=== PATIENT | female | born 1955 | race Caucasian/White ===

== ENCOUNTER 2018-01-05 06:54 | Day surgery (SDC) | payer OTHER, BC, SELFPAY ==
--- NOTE | 2017-12-31 17:01 | PM.PREOP ---
Pre-operative Note Interval Note Pre-op Check: History & Physical Reviewed by Physician
[2018-01-05 07:20] VITALS: BP 126/75; PULSE 88; RESP 15; TEMP 36.4; O2SAT 97; BMI 28.2
[2018-01-05] MEDS: PROPARACAINE 0.5% OPHTH SOL 2 DROPS EYE-OP (07:20)
[2018-01-05] MEDS: CATARACT EYE COMPOUND (10 DROPS/SYRINGE) 3 DROPS EYE-OP (07:49)
--- NOTE | 2018-01-05 07:51 | PM.PROC.1 ---
Procedures Date/Time Date of procedure: 01/05/18 Time of procedure: 07:52 General Procedure description: Date of service: December Preoperative diagnoses: 1. Left nuclear sclerotic and cortical cataract with astigmatism 2. Hypertension 3. Arthritis Postoperative diagnoses: 1. Cataract status post toric intra-ocular lens implant with phacoemulsification Procedure: Phacoemulsification with posterior chamber intraocular lens implant Surgeon: Denise Upton MD Complications: None Specimen: None Implant: [id number] +21.0 Blood loss: None Anesthesia: Retrobulbar with monitored standby Anesthesiologist: Christelle Marc M.D. Description of procedure: Patient is a 62 year old female] with decreased vision due to cataract which is affecting activities of daily living. She wants surgery to improve vision with an astigmatism correcting intraocular lens implant with a distance target. She has taken to the operating room and given topical proparacaine drops.Then corneal marking were performed with an inked marker at 90 and 180 degrees.she was then given IV sedation. A retrobulbar block insert consisting of 6 cc of 2% xylocaine without epinephrine mixed half and half with 0.5% Marcaine with 1 cc of hyaluronidase added is placed between the medial and lateral 1/3 of the inferior orbital rim. Lid akinesia is obtain with 1% xylocaine with epinephrine infiltrated along the lid margin. The eye is manually massaged for 30 sec, prepped using Betadine solution, and draped in the usual sterile fashion. Temporal approach was made, a 1 mm side-port incision was made at the 180 meridian. Phenylephrine 1.5% mixed with 1% xylocaine 0.2 cc was placed into the anterior chamber. Viscoat followed by Reina was then placed. A 2.6 mm clear incision with a 2.6 mm blade was placed at the 3 oclock meridian. A 360 degree capsulorrhexis style capsulotomy was then performed with a cystitome needle on a Healon. Hydrodelineation and hydrodissection were performed. The phacoemulsification unit is introduced, and sculpting notice used to groove the central lens. It is then removed in chopping mode. Epi nucleus is removed with epinuclear mode and irrigation aspiration was used to remove the peripheral cortex. The posterior capsule is polished. The intraocular lens is selected, inspected, power confirmed, and placed at the 136 degree meridian in the posterior chamber. The pupil was not constricted. The wound was stromally hydrated and tested for leaks, there was none and was left sutureless. Vigamox 0.1 cc was placed into the anterior chamber. Kenalog 0.2 cc was placed in the superior subconjunctival space. A drop of antibiotic and was placed and the eye was patched and shielded. The patient was stable and returned to the recovery room in excellent condition. Dictated by: Denise Upton MD Copy to: [facility]
[2018-01-05] MEDS: PROPARACAINE 0.5% OPHTH SOL 2 DROPS EYE-LEFT (08:00)
[2018-01-05] MEDS: LIDOCAINE 2% 4 ML, BUPIVACAINE 0.5% (PF) 4 ML, HYALURONIDASE 150 UNIT INJ (08:05)
[2018-01-05] MEDS: LIDOCAINE 1% W/EPI INJ 20 ML INJ (08:05)
[2018-01-05] MEDS: BALANCED SALT IRRIG SOLN NO.2 15 ML IRRIG.SOLN IRR (08:26)
[2018-01-05] MEDS: HYALURONATE SODIUM 10 MG/ML SYRINGE INJ (08:27)
[2018-01-05] MEDS: CHONDROIDTIN/SOD HYALURONATE 1.05 ML SYRINGE INTRAOCULA (08:27)
[2018-01-05] MEDS: MOXIFLOXACIN OPHTH DROPS 3 ML BOTTLE 2 DROPS INJ (08:28)
[2018-01-05] MEDS: NEOMYCIN/POLY/DEX OPHTH OINT 1 APPLIC EYE-LEFT (08:30)
[2018-01-05] MEDS: OFLOXACIN 0.3% OPHTH 5 ML 2 DROPS EYE-LEFT (08:30)
[2018-01-05] MEDS: PHENYLEPHRINE/LIDOCAINE 3ML VIAL (OR) EYE-OP (08:31)
[2018-01-05] MEDS: TRIAMCINOLONE 50 MG/5 ML VIAL INJ (08:33)
[2018-01-05] MEDS: BALANCED SALT IRRIG SOLN NO.2 500 ML, EPINEPHrine 1 MG IRR (08:34)
--- NOTE | 2018-01-05 20:14 | PM.DS.1 ---
History of Present Illness Chief complaint: [id number] Discharge Providers Primary care physician: Carmina Bowers PA-C Discharge provider: Denise Upton MD Exam Vital Signs (past 8 hours): Oxygen Delivery Method Room Air Discharge Plan Discharge Plan Patient Disposition: Home, Self-Care Discharge Med Rec/Prescriptions Prescriptions: No Action gabapentin 100 MG capsule 200 mg PO DAILY Qty: 0 RF: 0 atomoxetine [Strattera] 100 MG capsule 100 mg PO Qty: 0 RF: 0 gabapentin [Neurontin] 300 MG capsule 600 mg PO HS Qty: 0 RF: 0 bupropion HCl 150 mg PO BID RF: 0 cetirizine 20 mg PO DAILY PRN (Reason: Allergy Symptoms) RF: 0 progesterone micronized [Prometrium] 200 MG capsule 200 mg PO BEDTIME RF: 0 Discharge Orders: Discharge (Order); Ordered 01/05/18 Ordered By: Denise Upton Provider Discharge Instructions Activity: See handout. Visit Report/Discharge Packet Stand Alone Forms: Cataract Discharge Won, Surgery Discharge Discharge Data Primary Care Provider: Carmina Bowers Attending Provider: Denise Upton Discharges patient from system. Discharge Date/Time: 01/05/18 09:08
== END 2018-01-05 09:08 | disposition home or self-care (01) ==
PROVIDERS: PCP Physician Assistant; Visit Provider Ophthalmology
DX: H25.12 Age-related nuclear cataract, left eye (principal); F41.9 Anxiety disorder, unspecified; I10 Essential (primary) hypertension
CPT/HCPCS: J0171; J2250; J2704; J3010; J3301; J3470; V2787

== ENCOUNTER → 2018-01-18 14:22 | Outpatient (CLI) | payer OTHER, BC, SELFPAY | PROVIDERS: PCP Physician Assistant; Visit Provider Physician Assistant | DX: M85.88 Other specified disorders of bone density and structure, other site (principal); F17.200 Nicotine dependence, unspecified, uncomplicated | CPT/HCPCS: 77080 ==

== ENCOUNTER 2018-01-19 07:18 | Day surgery (SDC) | payer OTHER, BC, SELFPAY ==
[2018-01-19] MEDS: PROPARACAINE 0.5% OPHTH SOL 2 DROPS EYE-OP (07:25)
[2018-01-19 07:30] VITALS: BP 130/75; PULSE 82; RESP 16; TEMP 36.7; O2SAT 98; BMI 28.2
[2018-01-19] MEDS: CATARACT EYE COMPOUND (10 DROPS/SYRINGE) 3 DROPS EYE-OP (07:30)
--- NOTE | 2018-01-19 07:35 | PM.PREOP ---
Pre-operative Note Interval Note Pre-op Check: Yes History & Physical Reviewed by Physician Changes: No
--- NOTE | 2018-01-19 07:37 | PM.OP.1 ---
Operative Date/Time/Diagnoses Date of procedure: 01/19/18 Time of procedure: 08:00 Procedure & Clinicians Procedure: Date of service: January 19, 2018 Preoperative diagnoses: 1. Right cortical nuclear sclerotic Cataract 2. Astigmatism which she elects to correct with a toric intraocular lens. Postoperative diagnoses: 1. Cataract status post cataract surgery with toric intraocular lens implant Procedure: Phacoemulsification with posterior chamber intraocular lens implant Surgeon: Denise Upton MD Complications: None Specimen: None Implant: [id number]+20.0 [place] 037 Blood loss: None Anesthesia: Retrobulbar with monitored standby Anesthesiologist: Rohith Kiran M.D. Description of procedure: Patient is a female year old with decreased vision due to cataract which is affecting activities of daily living. She wants surgery to improve vision. She was taken to the operating room and topical proparacaine drops placed. Indelible ink rodríguez were made at the 90 and 180 degree meridian.She was then given IV sedation. A retrobulbar block insert consisting of 6 cc of 2% xylocaine without epinephrine mixed half and half with 0.5% Marcaine with 1 cc of hyaluronidase added is placed between the medial and lateral 1/3 of the inferior orbital rim. Lid akinesia is obtain with 1% xylocaine with epinephrine infiltrated along the lid margin. The eye is manually massaged for 30 sec, prepped using Betadine solution, and draped in the usual sterile fashion. Temporal approach was made, a 1 mm side-port incision was made at the 7:30 position. Phenylephrine 1.5% mixed with 1% xylocaine 0.2 cc was placed into the anterior chamber. Viscoat followed by Reina was then placed. A 2.6 mm clear incision with a 2.6 mm blade was placed at the 170 degree meridian. A 360 degree capsulorrhexis style capsulotomy was then performed with a cystitome needle on a Healon. Hydrodelineation and hydrodissection were performed. The phacoemulsification unit is introduced, and sculpting notice used to groove the central lens. It is then removed in chopping mode. Epi nucleus is removed with epinuclear mode and irrigation aspiration was used to remove the peripheral cortex. The posterior capsule is polished. The intraocular lens is selected, inspected, power confirmed, and placed in the 37 degree meridian in the posterior chamber. The pupil was not constricted. The wound was strongly hydrated and tested for leaks, there was none [] left sutureless. Vigamox 0.1 cc was placed into the anterior chamber. Kenalog 0.2 cc was placed in the superior subconjunctival space. A drop of antibiotic and was placed and the eye was patched and shielded. The patient was stable and returned to the recovery room in excellent condition. Dictated by: Denise Upton MD Copy to: [facility]
[2018-01-19] MEDS: PROPARACAINE 0.5% OPHTH SOL 2 DROPS EYE-RIGHT (07:58)
[2018-01-19] MEDS: LIDOCAINE 2% 4 ML, BUPIVACAINE 0.5% (PF) 4 ML, HYALURONIDASE 150 UNIT INJ (08:02)
[2018-01-19] MEDS: CHONDROIDTIN/SOD HYALURONATE 1.05 ML SYRINGE INTRAOCULA (08:22)
[2018-01-19] MEDS: HYALURONATE SODIUM 10 MG/ML SYRINGE INJ (08:22)
[2018-01-19] MEDS: BALANCED SALT IRRIG SOLN NO.2 15 ML IRRIG.SOLN IRR (08:22)
[2018-01-19] MEDS: LIDOCAINE 1% W/EPI INJ 20 ML INJ (08:23)
[2018-01-19] MEDS: MOXIFLOXACIN OPHTH DROPS 3 ML BOTTLE 2 DROPS INJ (08:23)
[2018-01-19] MEDS: NEOMYCIN/POLY/DEX OPHTH OINT 1 APPLIC EYE-RIGHT (08:25)
[2018-01-19] MEDS: OFLOXACIN 0.3% OPHTH 5 ML 2 DROPS EYE-RIGHT (08:26)
[2018-01-19] MEDS: PHENYLEPHRINE/LIDOCAINE 3ML VIAL (OR) EYE-OP (08:26)
[2018-01-19] MEDS: BALANCED SALT IRRIG SOLN NO.2 500 ML, EPINEPHrine 1 MG IRR (08:28)
[2018-01-19] MEDS: TRIAMCINOLONE 50 MG/5 ML VIAL INJ (08:28)
[2018-01-19 08:47] VITALS: BP 112/80; PULSE 80; RESP 20; TEMP 36.5; O2SAT 96
--- NOTE | 2018-01-19 09:02 | SUR.PHASEII ---
Given preprinted discharge instructions provided by Dr. Upton.
== END 2018-01-19 09:02 | disposition home or self-care (01) ==
PROVIDERS: PCP Physician Assistant; Visit Provider Ophthalmology
DX: H25.11 Age-related nuclear cataract, right eye (principal); H52.201 Unspecified astigmatism, right eye; F41.9 Anxiety disorder, unspecified
CPT/HCPCS: J0171; J2704; J3301; J3470; V2787

== ENCOUNTER → 2018-03-02 15:37 | Outpatient (CLI) | payer OTHER, BC, SELFPAY ==
--- NOTE | 2018-03-02 15:40 | DI.RAD.S_ITS ---
PROCEDURE: XR CHEST 2V INDICATIONS: Cough and fatigue TECHNIQUE: 2 views of the chest were acquired. COMPARISON: [facility], , CHEST 2 VIEW, 07/29/2016, 15:49. FINDINGS: Surgical changes and devices: None. Lungs and pleura: No pleural effusions or pneumothorax. Lungs are clear. Mediastinum: Mediastinal contours are normal. Heart size is normal. Bones and chest wall: No suspicious bony abnormalities. Soft tissues appear unremarkable. IMPRESSION: Negative chest. No acute cardiopulmonary process is evident. Dictated by: Yosef Mcmahon M.D. on 03/02/2018 at 14:55 Approved by: Yosef Mcmahon M.D. on 03/02/2018 at 14:57
== END ==
PROVIDERS: PCP Physician Assistant; Visit Provider Physician Assistant
DX: R05 Cough (principal); R53.83 Other fatigue
CPT/HCPCS: 71046

== ENCOUNTER → 2018-08-04 11:09 | Outpatient (CLI) | payer BC, SELFPAY ==
[2018-08-04 11:38] LABS: Add Manual Diff / Slide Review NO; Basophils Absolute Auto 100 /uL (0-100); Basophils Percent Auto 1.3 % (0-2); Eosinophils Absolute Auto 400 /uL (0-450); Eosinophils Percent Auto 4.9 % (2-4); Hematocrit 40.3 % (36-46); Hemoglobin 13.3 g/dL (12.0-16.0); Lymphocytes Absolute Auto 2200 /uL (1100-4500); Mean Corpuscular Hemoglobin 28.1 PG (26-34); Monocytes Absolute Auto 400 /uL (0-900); Monocytes Percent Auto 6.1 % (3-14); Neutrophils Absolute Auto 4000 /uL (1500-7000); Neutrophils Percent Auto 56.7 % (50-75); Platelet Count 348 X10^3/uL (150-400); Red Blood Cell Count 4.74 X10^6/uL (4.0-5.2); Red Cell Distribution Width 13.4 % (11.6-14.8); White Blood Cell Count 7.1 X10^3/uL (4.5-11.0)
[2018-08-04 12:04] LABS: Alanine Aminotransferase 37 IU/L (9-52); Albumin 4.6 g/dL (3.5-5.0); Albumin Globulin Ratio 1.6 (1.0-2.8); Alkaline Phosphatase 78 U/L (38-126); Aspartate Aminotransferase 20 IU/L (14-36); Bilirubin Total 0.5 mg/dL (0.2-1.3); Blood Urea Nitrogen 18 mg/dL (7-17); Calcium 9.8 mg/dL (8.4-10.2); Carbon Dioxide 27 mmol/L (22-32); Chloride 102 mmol/L (98-107); Cholesterol 225 mg/dL (140-199); Estimated Glomerular Filt Rate > 60.0 mL/min (>60); Globulin 2.8 g/dL (1.7-4.1); Glucose 101 mg/dL (80-110); HDL Cholesterol 48 mg/dL (40-60); HEMOLYSIS < 15 (0-50); LDL Cholesterol Calculated 147 mg/dL (<100); Potassium 5.2 mmol/L (3.4-5.1); Sodium 139 mmol/L (137-145); Total Protein 7.4 g/dL (6.3-8.2); Triglycerides 148 mg/dL (35-150)
== END ==
PROVIDERS: PCP Physician Assistant; Visit Provider Physician Assistant
DX: E78.5 Hyperlipidemia, unspecified (principal); R10.31 Right lower quadrant pain
CPT/HCPCS: 36415; 80053; 80061; 85025; 87086

== ENCOUNTER → 2018-08-08 13:59 | Outpatient (CLI) | payer BC, SELFPAY ==
--- NOTE | 2018-08-08 | DI.CT.S_ITS ---
PROCEDURE: CT ABDOMEN PELVIS W CON INDICATIONS: LOWER RIIGHT QUADRANT PAIN TECHNIQUE: After the administration of oral and intravenous contrast, 5 mm thick sections acquired from the diaphragms to the symphysis. 5 mm thick coronal and sagittal reformats were performed. For radiation dose reduction, the following was used: automated exposure control, adjustment of mA and/or kV according to patient size. COMPARISON: [facility], CT, CHEST ABDOMEN PELVIS WITH CONTRAST, 01/16/2011, 8:24. FINDINGS: Image quality: Excellent. ABDOMEN: Lung bases: Lung bases are clear. Heart size is normal. Solid organs: Liver is normal in size and enhancement. Gallbladder is within normal limits. Biliary system is non-dilated. Pancreas enhances normally. Spleen is normal in size and enhancement. No adrenal nodules. Kidneys are normal in size and enhancement, without hydronephrosis. Peritoneum and bowel: Stomach, small bowel, and colon loops are normal in caliber and wall thickness. Moderate diffuse colonic stool. No free fluid or air. Normal appendix. Nodes and vessels: No retroperitoneal or mesenteric adenopathy. Aorta and inferior vena cava are normal in caliber. Miscellaneous: No ventral hernias. PELVIS: Genitourinary: Urinary bladder is decompressed. Miscellaneous: No inguinal hernias or adenopathy. Bones: No suspicious bony lesions. No vertebral body compression fractures. IMPRESSION: 1. No acute process. No explanation for right lower quadrant pain. 2. Normal appendix. Dictated by: Therese Hook M.D. on 08/08/2018 at 14:03 Approved by: Therese Hook M.D. on 08/08/2018 at 14:06
== END ==
PROVIDERS: PCP Physician Assistant; Visit Provider Physician Assistant
DX: R10.31 Right lower quadrant pain (principal)
CPT/HCPCS: 74177; Q9967

== ENCOUNTER → 2018-11-25 14:46 | Outpatient (CLI) | payer BC, SELFPAY ==
--- NOTE | 2018-11-25 | DI.CT.S_ITS ---
PROCEDURE: CT HEAD/BRAIN WO CON INDICATIONS: CONCUSSION TECHNIQUE: Noncontrast 4.5 mm thick angled axial sections acquired from the foramen magnum to the vertex, with coronal and sagittal reformats. For radiation dose reduction, the following was used: automated exposure control, adjustment of mA and/or kV according to patient size. COMPARISON: None. FINDINGS: Image quality: Excellent. CSF spaces: Basal cisterns are patent. No extra-axial fluid collections. The ventricles are symmetric in size and shape. Brain: No intracranial bleeds or masses. There is cerebral volume loss for age, with resultant ventricular and sulcal prominence. There are periventricular and deep white matter chronic small vessel ischemic changes. There is intracranial internal carotid artery atherosclerosis. Skull and face: Calvarium and visualized facial bones appear intact, without suspicious lesions. Sinuses: Mild mucosal thickening noted in the visualized maxillary sinus and scattered ethmoid air cells. The mastoids are clear. IMPRESSION: No acute intracranial disease process. Dictated by: Denae Jonas MD, PhD on 11/25/2018 at 15:13 Approved by: Denae Jonas MD, PhD on 11/25/2018 at 15:16
== END ==
PROVIDERS: PCP Physician Assistant; Visit Provider Internal Medicine
DX: S06.0X0A Concussion without loss of consciousness, initial encounter (principal)
CPT/HCPCS: 70450

== ENCOUNTER → 2019-01-13 08:54 | Outpatient (CLI) | payer BC, SELFPAY ==
[2019-01-13 09:25] LABS: Add Manual Diff / Slide Review NO; Basophils Absolute Auto 0 /uL (0-100); Basophils Percent Auto 0.8 % (0-2); Eosinophils Absolute Auto 300 /uL (0-450); Eosinophils Percent Auto 4.3 % (2-4); Hematocrit 38.2 % (36-46); Lymphocytes Absolute Auto 1600 /uL (1100-4500); Lymphocytes Percent Auto 26.9 % (25-40); Mean Corpuscular HGB Conc 33.9 % (30-36); Mean Corpuscular Hemoglobin 28.7 PG (26-34); Mean Corpuscular Volume 84.7 fL (80-100); Monocytes Absolute Auto 400 /uL (0-900); Monocytes Percent Auto 6.2 % (3-14); Neutrophils Absolute Auto 3700 /uL (1500-7000); Neutrophils Percent Auto 61.8 % (50-75); Platelet Count 306 X10^3/uL (150-400); Red Blood Cell Count 4.52 X10^6/uL (4.0-5.2); Red Cell Distribution Width 13.6 % (11.6-14.8)
[2019-01-13 09:51] LABS: Alanine Aminotransferase 22 IU/L (9-52); Albumin 4.1 g/dL (3.5-5.0); Albumin Globulin Ratio 1.5 (1.0-2.8); Alkaline Phosphatase 84 U/L (38-126); Aspartate Aminotransferase 19 IU/L (14-36); BUN Creatinine Ratio 18.9 (6-22); Bilirubin Total 0.5 mg/dL (0.2-1.3); Blood Urea Nitrogen 17 mg/dL (7-17); Calcium 9.4 mg/dL (8.4-10.2); Carbon Dioxide 28 mmol/L (22-32); Chloride 106 mmol/L (98-107); Cholesterol 187 mg/dL (140-199); Estimated Glomerular Filt Rate > 60.0 mL/min (>60); Globulin 2.7 g/dL (1.7-4.1); Glucose 100 mg/dL (80-110); HDL Cholesterol 43 mg/dL (40-60); HEMOLYSIS < 15 (0-50); LDL Cholesterol Calculated 116 mg/dL (<100); Potassium 4.3 mmol/L (3.4-5.1); Sodium 140 mmol/L (137-145); Total Protein 6.8 g/dL (6.3-8.2); Triglycerides 139 mg/dL (35-150)
[2019-01-13 10:20] LABS: TSH w/ Reflex to FT4 2.41 uIU/mL (0.47-4.68)
[2019-01-13 10:38] LABS: Vitamin B12 251 pg/mL (239-931)
[2019-01-13 17:20] LABS: Vitamin D 25 Hydroxy (D3) 52.1 ng/mL (30.0-100.0)
== END ==
PROVIDERS: PCP Physician Assistant; Visit Provider Physician Assistant
DX: E55.9 Vitamin D deficiency, unspecified (principal); R53.83 Other fatigue; E53.8 Deficiency of other specified B group vitamins; L65.9 Nonscarring hair loss, unspecified; G60.9 Hereditary and idiopathic neuropathy, unspecified; E78.2 Mixed hyperlipidemia
CPT/HCPCS: 36415; 80053; 80061; 82306; 82607; 84443; 85025

== ENCOUNTER → 2019-11-11 10:43 | Outpatient (CLI) | payer BC, SELFPAY ==
[2019-11-11 11:42] LABS: Add Manual Diff / Slide Review NO; Basophils Absolute Auto 100 /uL (0-100); Basophils Percent Auto 0.8 % (0-2); Eosinophils Absolute Auto 200 /uL (0-450); Eosinophils Percent Auto 2.9 % (2-4); Hematocrit 38.4 % (36-46); Hemoglobin 12.9 g/dL (12.0-16.0); Lymphocytes Absolute Auto 1700 /uL (1100-4500); Lymphocytes Percent Auto 28.9 % (25-40); Mean Corpuscular HGB Conc 33.6 % (30-36); Mean Corpuscular Hemoglobin 28.7 PG (26-34); Mean Corpuscular Volume 85.5 fL (80-100); Monocytes Absolute Auto 300 /uL (0-900); Monocytes Percent Auto 5.8 % (3-14); Neutrophils Absolute Auto 3700 /uL (1500-7000); Neutrophils Percent Auto 61.6 % (50-75); Platelet Count 309 X10^3/uL (150-400); Red Cell Distribution Width 13.5 % (11.6-14.8)
[2019-11-11 11:50] LABS: Alanine Aminotransferase 16 IU/L (<35); Albumin 4.4 g/dL (3.5-5.0); Albumin Globulin Ratio 1.5 (1.0-2.8); Alkaline Phosphatase 97 U/L (38-126); Aspartate Aminotransferase 22 IU/L (14-36); BUN Creatinine Ratio 17.8 (6-22); Bilirubin Total 0.4 mg/dL (0.2-1.3); Blood Urea Nitrogen 16 mg/dL (7-17); Calcium 9.7 mg/dL (8.4-10.2); Carbon Dioxide 25 mmol/L (22-32); Chloride 109 mmol/L (98-107); Cholesterol 195 mg/dL (140-199); Estimated Glomerular Filt Rate > 60.0 mL/min (>60); Glucose 107 mg/dL (80-110); HDL Cholesterol 42 mg/dL (40-60); HEMOLYSIS < 15 (0-50); LDL Cholesterol Calculated 121 mg/dL (<100); Potassium 4.2 mmol/L (3.4-5.1); Sodium 142 mmol/L (137-145); Total Protein 7.4 g/dL (6.3-8.2); Triglycerides 159 mg/dL (35-150)
[2019-11-11 12:07] LABS: Free T3, Triiodothyronine Free 3.43 pg/mL (2.77-5.27); Free T4, Direct Thyroxine 1.15 ng/dL (0.78-2.19)
[2019-11-11 12:21] LABS: Thyroid Stimulating Hormone 2.48 uIU/mL (0.47-4.68)
[2019-11-12 06:47] LABS: Thyroid Peroxidase Antibodies 19 IU/mL (0-34)
== END ==
PROVIDERS: PCP Physician Assistant; Referring Provider Naturopath; Visit Provider Naturopath
DX: Z00.00 Encounter for general adult medical examination without abnormal findings (principal); K59.00 Constipation, unspecified; R63.5 Abnormal weight gain; N95.1 Menopausal and female climacteric states
CPT/HCPCS: 36415; 80053; 80061; 83525; 84439; 84443; 84481; 85025; 86376; 86900; 86901

== ENCOUNTER → 2019-12-08 10:59 | Outpatient (CLI) | payer BC, SELFPAY ==
--- NOTE | 2019-12-08 11:04 | DIET.PN ---
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 She has had IBS-c for most of life and is followed by GI doctor. Pt went through menopause 1y ago but is still having frequent, severe hot flashes. Pt has gained 30# in 2y without changing her diet or activity level. Pt takes gabapentin for hot flashes which has potential side effects of increased body weight and increased hunger. Pt in committed relationship c spouse who loves pt for who she is and two adult children. One daughter is athlete and passionate about clean eating, pt feels pressure from this daughter which is sometimes helpful and sometimes overwhelming. Pt likes natural medicine and unprocessed foods but not super strict, does not want to be. Pt's goal is to normalize FBG and lose 20# in a way that is lifestyle change rather than crash diet. 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 Pt is continuing intentional physical activity but does not have the work movement. Pt currently walking 18 holes while golfing 1x/w and started yoga c steffi videos on youtube. Labs: FBG 107, TG 159 H, LDL 121 H Nutrition Diagnosis: 1. abnormal weight gain r/t reduced physical activity level in nursing home and side effect of medication (gabapentin) aeb 30# unintentional wt gain in 2 y despite no reported change to dietary intake since retiring 1.5y ago, pt started taking gabapentin for menopause associated hot flashes ~2y ago. 2. Elevated fasting blood glucose (107) r/t undesirable food choices and physical inactivity aeb 30# unintentional wt gain in 2y, high carb breakfast, low intake of F/V, pt recently retired without replacing active job c equivalent active nursing home activities. 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 While her weight gain may be partially attributed to medication side effect, also influenced by not replacing active workday activities with active nursing home activities in addition to her normal physical activity routine. Pt's diet is high in carbohydrates during the morning which is working against her blood sugar regulation and weight loss efforts. Two meals per day may be acceptable for pt but her evening cravings for sugar could be lessened by the addition of a well balanced meal or snack within the day. Research shows 5-7% weight loss can normalize blood glucose. Interventions: 1. To reduce intake of sugar in the morning, gave pt sample of monkfruit sweetener which can be natural substitute for cane sugar in oatmeal and coffee, also recommended [place] Pectin as option for making jam without added sugar. 2. Discussed Plate Method to bring balance to meals and snacks. Pt will problem solve each meal and snack so they are in line with Plate Method (1/2 vegetables and/or fruits, 1/4 protein, 1/4 grain or starchy vegetables). If pt reduces any of these food groups it will be grains/starchy veg for unstarchy veg sometimes. Pt was able to teach back plate method and problem solved her morning oatmeal by reducing grain portion and increasing fruit: 1/2c steel cut oats c 1/4c unsalted mixed nuts, 2T rosamaria and flaxseeds and 3/4c blueberries. 3. Discussed role of physical activity in BG and weight management. Pt will take a long, slow, daily walk to target fat burning heart rate zone and will try [employer] for free workouts to increase muscle and core strength in addition to yoga videos. Monitoring/Evaluations: pt checking on # visits covered by insurance and will have f/u 30min appt c RD in 2w to assess progress and problem solve barriers. Introduce role of soluble fiber for regulating TG, FBG, LDL, and body weight.
== END ==
PROVIDERS: PCP Naturopath; Referring Provider Naturopath; Visit Provider Naturopath
DX: E66.9 Obesity, unspecified (principal); R63.5 Abnormal weight gain; K58.1 Irritable bowel syndrome with constipation; Z71.3 Dietary counseling and surveillance; Z68.30 Body mass index [BMI] 30.0-30.9, adult
CPT/HCPCS: 97802

== ENCOUNTER → 2020-02-05 09:30 | Outpatient (CLI) | payer BC, SELFPAY ==
[2020-02-05 10:34] LABS: Hemoglobin A1C% w Est Avg Glu 5.6 % (4.0-6.0)
[2020-02-05 10:50] LABS: Cholesterol 205 mg/dL (140-199); Glucose 95 mg/dL (80-110); HDL Cholesterol 43 mg/dL (40-60); LDL Cholesterol Calculated 124 mg/dL (<100); Triglycerides 191 mg/dL (35-150)
== END ==
PROVIDERS: PCP Naturopath; Referring Provider Naturopath; Visit Provider Naturopath
DX: E78.5 Hyperlipidemia, unspecified (principal); R73.9 Hyperglycemia, unspecified
CPT/HCPCS: 36415; 80061; 82947; 83036

== ENCOUNTER → 2020-10-11 18:44 | Outpatient (ROUT) | payer MEDICARE, OTHER, SELFPAY | PROVIDERS: PCP Naturopath; Visit Provider Internal Medicine | DX: N39.0 Urinary tract infection, site not specified (principal) | CPT/HCPCS: 87077; 87086; 87186 ==

== ENCOUNTER → 2020-10-14 12:12 | Outpatient (CLI) | payer MEDICARE, OTHER, SELFPAY ==
[2020-10-14 12:48] LABS: Add Manual Diff / Slide Review NO; Basophils Absolute Auto 100 /uL (0-100); Basophils Percent Auto 0.8 % (0-2); Eosinophils Absolute Auto 200 /uL (0-450); Eosinophils Percent Auto 2.1 % (2-4); Hemoglobin 12.7 g/dL (12.0-16.0); Lymphocytes Absolute Auto 1500 /uL (1100-4500); Lymphocytes Percent Auto 21.8 % (25-40); Mean Corpuscular HGB Conc 33.4 % (30-36); Mean Corpuscular Hemoglobin 28.7 PG (26-34); Mean Corpuscular Volume 85.9 fL (80-100); Monocytes Absolute Auto 500 /uL (0-900); Neutrophils Absolute Auto 4800 /uL (1500-7000); Neutrophils Percent Auto 68.3 % (50-75); Platelet Count 305 X10^3/uL (150-400); Red Blood Cell Count 4.42 X10^6/uL (4.0-5.2); Red Cell Distribution Width 12.9 % (11.6-14.8); White Blood Cell Count 7.1 X10^3/uL (4.5-11.0)
[2020-10-14 12:59] LABS: Alanine Aminotransferase 41 IU/L (<35); Albumin 4.1 g/dL (3.5-5.0); Albumin Globulin Ratio 1.3 (1.0-2.8); Alkaline Phosphatase 114 U/L (38-126); Amylase 63 U/L (30-110); Aspartate Aminotransferase 35 IU/L (14-36); BUN Creatinine Ratio 15.4 (6-22); Bilirubin Total 0.2 mg/dL (0.2-1.3); Blood Urea Nitrogen 18 mg/dL (7-17); Calcium 9.7 mg/dL (8.4-10.2); Carbon Dioxide 26 mmol/L (22-32); Chloride 106 mmol/L (98-107); Estimated Glomerular Filt Rate 46.4 mL/min (>60); Globulin 3.1 g/dL (1.7-4.1); Glucose 102 mg/dL (80-110); HEMOLYSIS < 15 (0-50); Lipase 82 U/L (23-300); Potassium 4.1 mmol/L (3.4-5.1); Sodium 141 mmol/L (137-145); Total Protein 7.2 g/dL (6.3-8.2)
== END ==
PROVIDERS: PCP Physician Assistant; Referring Provider Physician Assistant; Visit Provider Physician Assistant
DX: R10.30 Lower abdominal pain, unspecified (principal)
CPT/HCPCS: 36415; 80053; 82150; 83690; 85025

== ENCOUNTER → 2020-10-17 12:13 | Outpatient (CLI) | payer MEDICARE, OTHER, SELFPAY ==
--- NOTE | 2020-10-17 | DI.US.S_ITS ---
PROCEDURE: US RENAL COMPLETE INDICATIONS: Acute pyelonephritis TECHNIQUE: Real-time scanning was performed of the kidneys and bladder, with image documentation. COMPARISON: None. FINDINGS: Kidneys: Kidneys are normal in size. Right kidney measures 11.1 cm long; left kidney measures 11.3 cm long. Right renal cortical thickness is 1.8 cm; left renal cortical thickness is 1.8 cm. Renal cortical echotexture is normal. No hydronephrosis or nephrolithiasis. No suspicious solid mass lesions. Bladder: Pre-void bladder volume is 94 mL. Post-void residual is 0 mL. Pre-void images demonstrate no intraluminal masses or stones. On pre-void images, neither ureteral jets are noted with color Doppler interrogation. (Of note, ureteral jets may not be detectable in up to 25% of cases due to insufficient differences in specific gravity between ureteral and bladder urine). Miscellaneous: No free pelvic fluid. IMPRESSION: Grossly normal appearance of the kidneys bilaterally. Dictated by: Rohith Mccollum [facility] Interpreted: Andrew Kelly MD on 10/18/2020 at 8:30 Approved by: Andrew Kelly M.D. on 10/18/2020 at 10:21
--- OUTSIDE RECORDS SUMMARY | 2020-12-19 08:08 | XMS_ITS | Referral Summary ---
:1955 Author Organization [facility] Address [address] [place] [address] Care Team Providers Name Role Phone [facility] Primary Care Provider Reason for Referral Consultation (Routine) Status Reason Specialty Diagnoses / Referred By Referred To Procedures Contact Contact Authorized Specialty Physical Diagnoses Lower urinary tract symptoms (LUTS) [facility] Aby Troy MD [facility] Required [address] [facility] [address] [place] [address] Phone: Scheduling Instructions PFMT Electronically signed by Aby Ball MD atConsultation (Routine) Status Reason Specialty Diagnoses / Procedures Referred By Leonidas perdue Referred To Contact Closed Urology Diagnoses Lower urinary tract symptoms (LUTS) Aby Ball [facility] Procedures Post Void Residual (PVR) MD Sydni [address] [place] [id number] Phone: Electronically signed by Aby Ball MD at Reason for Visit Reason Comments Urinary Incontinence Encounter Details Date Type Department Care Team Description 12/05/2020 Office Visit [facility] Aby Ball [facility] rinary tract Clinics Urology Maribell Troy MD symptoms (LUTS) Miqu[place] [address] (Primary Dx) [address] [place] [address] [phone] Allergies Active Allergy Reactions Severity Noted Date Comments Flu Vaccine 2010 (36 02/28/2019 Other r eaction(s): Mos+)(Pf) anaphylaxis documented as of this encounter (statuses as of 12/16/2020) Medications Medication Sig Dispensed Refills Start Date End Date Status buPROPion HCl, smoking TK 1 T PO BID 0 01/16/2019 Active deter, 150 mg tablet extended release 12 hr gabapentin (NEURONTIN) TK 1 C PO TID IN 3 02/21/2019 Active 100 mg capsule ADDITION TO 300 MG PRF HOT FLASHES gabapentin (NEURONTIN) TK 1 C PO TID 3 02/21/2019 Active 300 mg capsule atomoxetine 0 03/03/2020 Active (STRATTERA) 100 mg capsule linaCLOtide (Linzess) Take 290 mg by 0 Active 290 mcg capsule mouth documented as of this encounter (statuses as of 12/16/2020) Active Problems Problem Noted Date History of colon polyps 03/27/2019 Overview: Added automatically from request for luis barajas [id number] Family history of colon cancer 03/27/2019 Overview: Added automatically from request for luis barajas [id number] documented as of this encounter (statuses as of 12/16/2020) Immunizations Name Administration Dates Next Due Influenza, Quadrivalent 04/29/2011 [id number] Vaccine 09/26/2020, 09/05/2020 documented as of this encounter Social History Tobacco Use Types Packs/Day Years Used Date Former Smoker Cigarettes Quit: 2019 Smokeless Tobacco: Never Used Alcohol Use Standard Drinks/Week Comments Never 0 (1 standard drink = 0.6 oz pure alcoho l) none since 1981 Alcohol Habits Answer Date Recorded How often do you have a drink containing alcohol? Never 03/27/2019 How many drinks containing alcohol do you have on a typical Not asked day when you are drinking? How often do you have six or more drinks on one occasion? No t asked Sex Assigned at Date Recorded Not on file Job Start Date Occupation Industry Not on file Not on file Not on file documented as of this encounter Last Filed Vital Signs Vital Sign Reading Time Taken Comments Blood Pressure 115/80 12/05/2020 9:02 AM PDT Pulse 88 12/05/2020 9:02 AM PDT Temperature - - Respiratory Rate - - Oxygen Saturation - - Inhaled Oxygen Concentration - - Weight 85 kg (187 lb 6.4 oz) 12/05/2020 9:02 AM PDT Height - - Body Mass Index 30.25 08/30/2020 10:54 AM PST documented in this encounter Progress Notes Aby Ball MD - 12/05/2020 9:10 AM PDT CC: Urinary Incontinence HPI: Mary Urbano is a 65 y.o. female who presents with lower urinary tract symptoms. She states for 10-12 years she's had urinary problems. - She complains of urinary incontinence over those years. - She also complains of weak urinary stream. She has leakage with urge and stress maneuvers. - She also notes the urinary incontinence can arise unprovoked. - The stress urinary incontinence is worse than the other urinary incontinence aspects. She is troubled by her urinary urgency. She consumes 2 cups of coffee daily. Notably, she has chronic constipation from a redundant colon. Urine culture 09/2020: E coli, ESBL, 100k UA: negative PVR: 20 ml Past Medical History: Past Medical History: Diagnosis Date ??? Constipation ??? IBS (irritable bowel syndrome) Past Surgical History: Past Surgical History: Procedure Laterality Date ??? VT COLONOSCOPY FLX DX W/COLLJ SPEC WHEN PFRMD N/A 02/13/2020 Procedure: COLONOSCOPY; Surgeon: Candido Elder MD; Location: [facility]; Service: Gastroenterology ??? VT COLONOSCOPY FLX DX W/COLLJ SPEC WHEN PFRMD N/A 08/30/2020 Procedure: COLONOSCOPY; Surgeon: Candido Elder MD; Location: [facility]; Service: Gastroenterology ??? TONSILLECTOMY Medications: Current Outpatient Medications on File Prior to Visit Medication Sig Dispense Refill ??? atomoxetine (STRATTERA) 100 mg capsule ??? buPROPion HCl, smoking deter, 150 mg tablet extended release 12 hr TK 1 T PO BID 0 ??? gabapentin (NEURONTIN) 100 mg capsule TK 1 C PO TID IN ADDITION TO 300 MG PRF HOT FLASHES 3 ??? gabapentin (NEURONTIN) 300 mg capsule TK 1 C PO TID 3 ??? linaCLOtide (Linzess) 290 mcg capsule Take 290 mg by mouth No current facility-administered medications on file prior to visit. Allergies: Flu vaccine 2010 (36 mos+)(pf) Family History: Family History Problem Relation Age of Onset ??? Colon cancer Paternal Grandmother ??? Stomach cancer Mother ??? Skin cancer Father ??? Brain cancer Brother Social History: Social History Tobacco Use ??? Smoking status: Former Smoker Types: Cigarettes Quit date: 2019 Years since quittin.4 ??? Smokeless tobacco: Never Used Substance Use Topics ??? Alcohol use: Never Comment: none since 1981 ??? Drug use: Yes Types: Marijuana Comment: CBD balm Review of Systems: Review of Systems Constitutional: Negative for appetite change, chills, diaphoresis, fatigue, fever and unexpected weight change. HENT: Negative for congestion, rhinorrhea, sore throat and trouble swallowing. Eyes: Negative for visual disturbance. Respiratory: Negative for apnea, cough, chest tightness, shortness of breath and wheezing. Cardiovascular: Negative for chest pain, palpitations and leg swelling. Gastrointestinal: Negative for abdominal distention, abdominal pain, constipation, diarrhea, nausea and vomiting. Endocrine: Negative for cold intolerance and heat intolerance. Musculoskeletal: Negative for back pain, myalgias and neck pain. Neurological: Negative for dizziness, weakness and light-headedness. Hematological: Does not bruise/bleed easily. Psychiatric/Behavioral: Negative for confusion. The patient is not nervous/anxious. Physical Exam: BP 115/80 (BP Location: Left arm, Patient Position: Sitting) Pulse 88 Wt 85 kg BMI 30.25 kg/m?? General: well-nourished, well-developed, no apparent distress HEENT: atraumatic, normocephalic, extraocular movements intact CV: regular pulse Respiratory: no increased work of breathing CN II-XII: grossly intact Psych: normal affect, mood, behavior Impression: 65 y.o. female with lower urinary tract symptoms Discussed with patient: 1) We reviewed her lower urinary tract symptoms in detail - This history was a bit complex to attain - Ultimately, what I'm able to gather is she has mixed urinary incontinence (stress and urge, stressis worse than urge, and she feels she has urinary incontinence without provocation as well); she hasurinary urgency; she has weak urinary stream 2) We discussed her history of urinary tract 09/2020 3) We reviewed her habits 4) Behavior modification - Stop consuming/cut down on coffee - Timed voiding every 2-3 hours 5) Pelvic floor muscle training - I have advised her to move forward with this - She didn't want to do pelvic floor muscle training--she vacillated between going and not going, and ultimately, after back and forth decided to move forward 6) Medical management - We discussed overactive bladder medications and potential side effects - Given the constipation risk, she declined - (Then stated upon leaving she was expecting a prescription, then decided she didn't want one) 7) Further evaluation potentials - Cystoscopy - Pelvic exam - She has deferred at this time 8) For stress urinary incontinence - Again, I would recommend up front pelvic floor muscle training - Options in the future could be surgical, like mid urethral sling - She stated she wouldn't undergo surgery 9) Problems with lower extremity edema - She complains that my socks leave indents in my legs for an hour - See her primary care provider for this Plan: 1) Behavior modification 2) Pelvic floor muscle training 3) Follow-up MOMON Aby Ball M.D. documented in this encounter Procedure Notes Shilpa Rodriguez MA - 12/05/2020 9:10 AM PDTAssociated Order(s): Post Void Residual (PVR)Post-Procedure Diagnose(s): Lower urinary tract symptoms (LUTS) Post Void Residual (PVR) Date/Time: 12/05/2020 9:05 AM Performed by: Shilpa Rodriguez MA Authorized by: Aby Ball MD Comments: 20ml documented in this encounter Miscellaneous Notes Addendum Note - Shilpa Rodriguez MA - 12/05/2020 9:10 AM PDT Addended by: SHILPA RODRIGUEZ on: 12/05/2020 10:19 AM Modules accepted: Orders documented in this encounter Plan of Treatment Scheduled Referrals Name Type Priority Associated Order Schedule Diagnoses XTRNL Referral to Outpatient Referral Routine Lower urinary tr act 1 Occurrences Physical Therapy symptoms (LUTS) starting 12/05/2020 until 2 documented as of this encounter Procedures Procedure Name Priority Date/Time Associated Comments Diagnosis POCT URINALYSIS WITH Routine 12/05/2020 9:06 Res ults for this MICROSCOPIC AM PDT procedure are i n the results section. POST VOID RESIDUAL Routine 12/05/2020 Lower urinary tract Re sults for this symptoms (LUTS) procedure ar e in the results section. documented in this encounter Results POCT UA with Microscopic (12/05/2020 9:06 AM PDT) Blood/Hemoglobin, Negative Negative - Trace [facility] UA POCT (CLIA [id number]) Urinalysis POC QC Yes Yes [facility] Pass? POCT (CLIA [id number]) Color, UA Dark Yellow Yellow [facility] POCT (CLIA [id number]) Clarity, UA Clear Clear [facility] POCT (CLIA [id number]) Glucose, UA Negative Negative [facility] POCT (CLIA [id number]) Bilirubin, UA Negative Negative [facility] POCT (CLIA [id number]) Ketones, UA Negative Negative [facility] POCT (CLIA [id number]) Specific [place], 1.020 1.001 - 1.035 [facility] UA POCT (CLIA [id number]) pH, UA 5.0 5 - 9 [facility] POCT (CLIA [id number]) Protein, UA Trace Negative [facility] POCT (CLIA [id number]) Urobilinogen, UA 0.2 (Normal) <1.0 [facility] POCT (CLIA [id number]) Nitrite, UA POC Negative Negative [facility] POCT (CLIA [id number]) Leukocytes, UA + (A) Negative [facility] POCT (CLIA [id number]) RBC, UA 0-2 0 - 2 [facility] POCT (CLIA [id number]) WBC, UA POCT 0-2 0 - 2 [facility] POCT (CLIA [id number]) Epithelial Cells, None Seen None [facility] Other POCT (CLIA [id number]) Bacteria, UA None Seen None [facility] POCT (CLIA [id number]) Crystals, UA None Seen None [facility] POCT (CLIA [id number]) Specimen Urine - Urine specimen obtained by clean catch procedure (specimen) Performing Organization Address City/State/ZIP Code Phon e Number [facility] POCT (CLIA [address] [place] [address] [id number]) Post Void Residual (PVR) (12/05/2020) Narrative Performed At This result has an attachment that is no t available. Shilpa Rodriguez MA ? 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
== END ==
PROVIDERS: PCP Physician Assistant; Referring Provider Physician Assistant; Visit Provider Physician Assistant
DX: N10 Acute pyelonephritis (principal)
CPT/HCPCS: 76770

== ENCOUNTER → 2021-03-02 15:04 | Outpatient (CLI) | payer MEDICARE, OTHER, SELFPAY ==
[2021-03-02 15:29] LABS: COVID19 -Nasal RAPID Negative (Negative)
== END ==
PROVIDERS: PCP Physician Assistant; Visit Provider Nurse Practitioner Family
DX: Z20.822 Contact with and (suspected) exposure to COVID-19 (principal); R51.9 Headache, unspecified
CPT/HCPCS: 87635

== ENCOUNTER → 2021-05-27 11:48 | Outpatient (CLI) | payer MEDICARE, OTHER, SELFPAY ==
--- NOTE | 2021-05-27 11:51 | DI.RAD.S_ITS ---
PROCEDURE: XR DEXA AXIAL SKELETON INDICATIONS: Asymptomatic menopausal state COMPARISON: [facility], CR, XR DEXA AXIAL SKELETON, 01/18/2018, 14:51. FINDINGS: This blank DEXA report has been sent in error by the PACS system. The correct and complete report will be forthcoming in 1-2 days. Thank you for your patience and understanding. Dictated by: Denae Jonas MD, PhD on 05/27/2021 at 16:30 Approved by: Denae Jonas MD, PhD on 05/27/2021 at 16:37
== END ==
PROVIDERS: PCP Physician Assistant; Referring Provider Internal Medicine; Visit Provider Internal Medicine
DX: Z78.0 Asymptomatic menopausal state (principal); M85.88 Other specified disorders of bone density and structure, other site; Z72.0 Tobacco use
CPT/HCPCS: 77080

== ENCOUNTER 2023-08-01 23:48 | Emergency (ER) | payer MEDICARE, OTHER, SELFPAY ==
[2023-08-01 23:53] VITALS: BP 179/89; PULSE 88; RESP 19; TEMP 36.5; O2SAT 98; BMI 30.4
[2023-08-02] VITALS (14 sets, daily range): BP systolic 122–152; BP diastolic 63–101; PULSE 67–85; RESP 15–23; O2SAT 94–98
--- NOTE | 2023-08-02 00:08 | PC.NURSE ---
Contacted Ailyn, Pharmacist, at Poison control. States Patient needs to be observed for 8 hrs after time of ingestion. State peak of medication will be in a few hours. States symptoms could be tremors, increase agitation, and rarely seizures. States can treat symptoms with benzos. 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 so to do ekg now and repeat in a few hours. States peak of medication will be in a few hours and symptoms should be getting better. If she is getting worse to call back.
--- NOTE | 2023-08-02 03:18 | ED.OVERDOSE ---
HPI - Overdose General Chief Complaint: Toxicology Problem Stated Complaint: took wrong meds Time Seen by Provider: 08/02/23 02:25 Source: patient Mode of arrival: Ambulatory History of Present Illness HPI Narrative: 68-year-old female who arrives by private vehicle. Patient reports that shortly prior to arriving she took 700 mg of her own atomoxetine thinking it was gabapentin. Says that she began feeling a little strange and sleepy and now has some itching. He does not have any shortness of breath nausea or vomiting. This was her own medication it was an accidental ingestion she has not using any alcohol tonight. Poison control was contacted recommended EKG and 6 hour observation. Patient is not having chest pain shortness of breath wheezing or other allergic symptoms. Related Data Home Medications Medication Instructions Recorded Confirmed atomoxetine 100 mg capsule 100 mg PO ##0 07/28/16 12/06/19 (Strattera) gabapentin 100 mg capsule 200 mg PO DAILY ##0 07/28/16 12/06/19 gabapentin 300 mg capsule 600 mg PO HS ##0 08/13/16 12/06/19 (Neurontin) bupropion HCl 150 mg PO BID 01/05/18 12/06/19 cetirizine 20 mg PO DAILY PRN Allergy Symptoms 01/05/18 12/06/19 cholecalciferol (vitamin D3) 50 2,000 unit PO DAILY 03/02/18 12/06/19 mcg (2,000 unit) capsule Estrovera PO 12/06/19 Allergies Allergy/AdvReac Type Severity Reaction Status Date / Time Influenza Virus Vaccines Allergy Hives Verified 03/02/18 14:59 Patient History Surgical History History of third molar tooth extraction Status post dilation and curettage Status post surgery (09/25/16) Status post tonsillectomy and adenoidectomy Social History household members: spouse Smoking Status: Former smoker Smoking Status: Former smoker Substance Use Type: does not use Exam Narrative Exam Narrative: Alert, no acute distress HEENT: Normocephalic, atraumaitic moist mucus membranes Neck: Supple no midline tenderness Lungs: Clear to ascultaion, no respiratory distress Heart: Regular rhythm and rate no murmur Abdomen: Normal bowel sounds, soft and nontender Extremeties: Full range of motion no deformity Neuro: Alert and oriented, normal speech moves x4 Initial Vital Signs Initial Vital Signs: Vital Signs Temperature 97.7 F 08/01/23 23:53 Pulse Rate 88 08/01/23 23:53 Respiratory Rate 19 08/01/23 23:53 Blood Pressure 179/89 H 08/01/23 23:53 Pulse Oximetry 98 08/01/23 23:53 Oxygen Delivery Method Room Air 08/01/23 23:53 Course Orders Ordered: ED Orders 08/02/23 00:16 EKG-12 Lead Stat 08/02/23 04:23 EKG-12 Lead Stat Discontinued Medications Hydroxyzine HCl (Hydroxyzine Hcl 25 Mg Tablet) 25 mg PO NOW ONE Stop: 08/02/23 03:26 Last Admin: 08/02/23 03:30 Dose: 25 mg Documented By: MARINA Hydroxyzine HCl (Hydroxyzine Hcl 25 Mg Tablet) 25 mg PO NOW ONE Stop: 08/02/23 04:28 Last Admin: 08/02/23 04:31 Dose: 25 mg Documented By: MARINA Reevaluation(s) Reevaluation #1: At the end of the 6 hour observation period, the patient was feeling well. Vital signs are normal. She is discharged home Consultations Consultation #1: Consultation with poison control, recommended 6 hour observation and repeat EKG Vital Signs Vital signs: Vital Signs - 8 hr 08/01/23 23:53 08/02/23 00:23 08/02/23 00:25 Temperature 97.7 F Pulse Rate 88 85 79 Respiratory Rate 19 21 15 Blood Pressure 179/89 H Pulse Oximetry 98 97 95 Oxygen Delivery Method Room Air 08/02/23 00:25 08/02/23 00:30 08/02/23 00:30 Temperature Pulse Rate 75 Respiratory Rate 18 Blood Pressure 152/84 H 145/79 H Pulse Oximetry 96 Oxygen Delivery Method 08/02/23 01:00 08/02/23 01:00 08/02/23 01:30 Temperature Pulse Rate 68 71 Respiratory Rate 16 16 Blood Pressure 137/68 Pulse Oximetry 95 96 Oxygen Delivery Method 08/02/23 01:31 08/02/23 01:31 08/02/23 02:00 Temperature Pulse Rate 71 69 Respiratory Rate 23 15 Blood Pressure 136/101 H Pulse Oximetry 95 95 Oxygen Delivery Method 08/02/23 02:00 Temperature Pulse Rate Respiratory Rate Blood Pressure 147/71 H Pulse Oximetry Oxygen Delivery Method MDM - Overdose ECG Data Interpretation: EKG at 0013 shows normal sinus rhythm at 84 all intervals are normal no acute ST segment changes Repeat EKG at 4:19 a.m. shows sinus rhythm at 73 normal QRS duration normal QTC MDM Narrative Medical decision making narrative: 60-year-old female with an accidental overdose on Strattera. She did not show any alteration in her vital signs are EKG. Symptoms were limited to some itching that was easily controlled with hydroxyzine. There was nothing to suggest that this was intentional overdose. Patient was discharged home. Naloxone at Discharge Meets criteria for naloxone at discharge?: No Discharge Plan Departure Patient Disposition: Home Clinical Impression: Accidental overdose Qualifiers: Encounter type: initial encounter Qualified Code(s): T50.901A - Poisoning by unspecified drugs, medicaments and biological substances, accidental (unintentional), initial encounter Activity Restrictions/Additional Instructions: It does not appear that you have suffered any significant toxicity from your accidental overdose on Strattera. Continue previous home medications. Follow up with your primary care provider as needed. Be careful when taking your medications. Prescriptions: No Action cholecalciferol (vitamin D3) 2,000 unit capsule 2,000 unit PO DAILY gabapentin 100 MG capsule 200 mg PO DAILY Qty: 0 atomoxetine [Strattera] 100 MG capsule 100 mg PO Qty: 0 gabapentin [Neurontin] 300 MG capsule 600 mg PO HS Qty: 0 Estrovera PO bupropion HCl 150 mg PO BID cetirizine 20 mg PO DAILY PRN (Reason: Allergy Symptoms) Referrals: Carmina Bowers PA-C [Primary Care Provider] - Stand Alone Forms: Patient Portal/API
[2023-08-02] MEDS: hydrOXYzine HCL 25 MG TABLET PO ×2 (03:30→04:31)
--- NOTE | 2023-08-02 04:32 | PC.NURSE ---
pt states itching is better but it still bothering her, Dr Enrique informed and med ordered and given
== END 2023-08-02 05:57 | disposition home or self-care (01) ==
PROVIDERS: Emergency Provider Emergency Medicine; PCP Physician Assistant
DX: T50.901A Poisoning by unspecified drugs, medicaments and biological substances, accidental (unintentional), initial encounter (principal); R03.0 Elevated blood-pressure reading, without diagnosis of hypertension
CPT/HCPCS: 93005; 93010; 99283; A9270